=== PATIENT | female | born 1980 | race Caucasian/White ===

== ENCOUNTER 2016-08-06 10:27 | Emergency (ER) | payer OTHER ==
--- NOTE | 2016-08-06 10:43 | ER Document Report ---
ED Medical Screen (RME) - General Stated Complaint: ABDOMINAL PAIN Time seen by provider: 10:41 Mode of Arrival: Ambulatory Information source: Patient Notes: 36-year-old female presents to ED for abdominal pain back pain nausea and vomiting and diarrhea or and dizziness since Wednesday morning. Her son had it on Wednesday and the youngest had yesterday. No vomiting today. She states she's had 4 stools today already. Last menstrual period 07/24/2016. I have greeted and performed a rapid initial assessment of this patient. A comprehensive ED assessment and evaluation of the patient, analysis of test results and completion of medical decision making process will be conducted by an additional ED providers. TRAVEL OUTSIDE OF THE [place] IN LAST 30 DAYS: No Physical Exam - Vital signs Vitals: Temp Pulse Resp BP Pulse Ox 98.2 F 91 17 125/77 100 08/06/16 10:35 08/06/16 10:35 08/06/16 10:35 08/06/16 10:35 08/06/16 10:35 Course - Vital Signs Vital signs: Temp Pulse Resp BP Pulse Ox 98.2 F 91 17 125/77 100 08/06/16 10:35 08/06/16 10:35 08/06/16 10:35 08/06/16 10:35 08/06/16 10:35
[2016-08-06 11:41] LABS: ABSOLUTE MONOCYTES (AUTO) 0.3 10^3/uL (0.1-1.4); ABSOLUTE NEUT (AUTO) 4.3 10^3/uL (1.7-8.2); BASOPHILS % (AUTO) 0.4 % (0-2); EOSINOPHILS % (AUTO) 0.5 % (0-6); HEMATOCRIT 37.6 % (36.0-47.0); HEMOGLOBIN 12.4 g/dL (12.0-15.5); HGB HCT DIFFERENCE -0.4; MEAN CORPUSCULAR HGB CONC 33.1 g/dL (32.0-36.0); MEAN CORPUSCULAR VOLUME 79 fl (80-97); MONOCYTES % (AUTO) 5.4 % (3-13); RED BLOOD COUNT 4.77 10^6/uL (3.72-5.28); RED CELL DISTRIBUTION WIDTH 15.5 % (11.5-14.0); SEGMENTED NEUTROPHILS % (AUTO) 75.7 % (42-78); WHITE BLOOD COUNT 5.6 10^3/uL (4.0-10.5)
[2016-08-06 11:52] LABS: APPEARANCE,URINE SLIGHTLY-CLOUDY; BILIRUBIN,URINE NEGATIVE (NEGATIVE); GLUCOSE, URINE NEGATIVE (NEGATIVE); KETONES,URINE TRACE mg/dL (NEGATIVE); LEUKOCYTE ESTERASE,URINE SMALL (NEGATIVE); NITRITE,URINE NEGATIVE (NEGATIVE); PROTEIN,URINE NEGATIVE (NEGATIVE); URINE SPECIFIC GRAVITY 1.011; UROBILINOGEN,URINE NEGATIVE mg/dL (<2.0)
[2016-08-06 11:55] LABS: ALANINE AMINOTRANSFERASE 32 U/L (9-52); ALBUMIN 4.3 g/dL (3.5-5.0); ALKALINE PHOSPHATASE 115 U/L (38-126); ANION GAP 11 (5-19); ASPARTATE AMINO TRANSFERASE 23 U/L (14-36); BILIRUBIN,DIRECT 0.3 mg/dL (0.0-0.4); BILIRUBIN,TOTAL 0.5 mg/dL (0.2-1.3); BLOOD UREA NITROGEN 9 mg/dL (7-20); CALCIUM 9.4 mg/dL (8.4-10.2); CARBON DIOXIDE 24 mmol/L (22-30); CHLORIDE 105 mmol/L (98-107); CREATININE RESULT 0.63 mg/dL (0.52-1.25); GLUCOSE 95 mg/dL (75-110); POTASSIUM 4.4 mmol/L (3.6-5.0); SODIUM 140.1 mmol/L (137-145); TOTAL PROTEIN 7.3 g/dL (6.3-8.2)
[2016-08-06] MEDS ORDERED: ONDANSETRON HCL INJ/PF 4 MG/2 ML SDV IV ONE (12:51)
[2016-08-06] MEDS ORDERED: NORMAL SALINE 1000 ML 2,000 ML IV ONE (12:51)
--- NOTE | 2016-08-06 12:58 | ER Document Report ---
ED GI/ - General Chief Complaint: Abdominal Pain Stated Complaint: ABDOMINAL PAIN Time seen by provider: 12:47 Mode of Arrival: Ambulatory Information source: Patient Notes: 36-year-old female complaining of dizziness, vomiting and diarrhea since Wednesday. She has not bounced back like her child that had this illness. No fever. No dysuria. No vaginal discharge. No flank pain. Labs are normal and she is not . TRAVEL OUTSIDE OF THE [place] IN LAST 30 DAYS: No - Related Data Allergies/Adverse Reactions: Sulfa (Sulfonamide Antibiotics) Allergy (Verified 08/06/16 10:42) Past Medical History - General Information source: Patient - Social History Smoking Status: Never Smoker Chew tobacco use (# tins/day): No Frequency of alcohol use: None Drug Abuse: None Lives with: Family Family History: Reviewed & Not Pertinent Patient has suicidal ideation: No Patient has homicidal ideation: No - Medical History Medical History: Negative Renal/ Medical History: Denies: Hx Peritoneal Dialysis Surgical Hx: Negative Review of Systems - Review of Systems Constitutional: No symptoms reported EENT: No symptoms reported Cardiovascular: No symptoms reported Respiratory: No symptoms reported Gastrointestinal: See HPI Genitourinary: No symptoms reported Female Genitourinary: No symptoms reported Musculoskeletal: No symptoms reported Skin: No symptoms reported Hematologic/Lymphatic: No symptoms reported Neurological/Psychological: No symptoms reported Physical Exam - Vital signs Vitals: Temp Pulse Resp BP Pulse Ox 98.2 F 91 17 125/77 100 08/06/16 10:35 08/06/16 10:35 08/06/16 10:35 08/06/16 10:35 08/06/16 10:35 Interpretation: Normal - General General appearance: Alert Notes: Looks dry - HEENT Head: Normocephalic, Atraumatic Eyes: Normal Conjunctiva: Normal Pupils: PERRL Mucous membranes: Dry Pharynx: Normal Neck: Supple. No: Lymphadenopathy - Respiratory Respiratory status: No respiratory distress Chest status: Nontender Breath sounds: Normal Chest palpation: Normal - Cardiovascular Rhythm: Regular Heart sounds: Normal auscultation Murmur: No - Abdominal Inspection: Normal Distension: No distension Bowel sounds: Normal Tenderness: Nontender. No: Tender Organomegaly: No organomegaly - Back Back: Normal, Nontender. No: CVA tenderness - Extremities General upper extremity: Normal inspection, Nontender, Normal color, Normal ROM , Normal temperature General lower extremity: Normal inspection, Nontender, Normal color, Normal ROM , Normal temperature, Normal weight bearing. No: Nilay's sign - Neurological Neuro grossly intact: Yes Cognition: Normal Orientation: AAOx4 [place] Coma Scale Eye Opening: Spontaneous [place] Coma Scale Verbal: Oriented [place] Coma Scale Motor: Obeys Commands [place] Coma Scale Total: 15 Speech: Normal Motor strength normal: LUE, RUE, LLE, RLE Sensory: Normal - Psychological Associated symptoms: Normal affect, Normal mood - Skin Skin Temperature: Warm Skin Moisture: Dry Skin Color: Normal Skin irregularity: negative: Rash Course - Re-evaluation Re-evalutation: 08/06/16 15:23 Looks better after the IV fluid but she states she still has some upper abdominal pain ordered a GI cocktail and Prevacid 30 mg ODT. Eating crackers and drinking gingerale. Abdomen still non tender. Kept fluids down, she states it carrillo some going down. very minimal diarrhea in bathrrom 08/06/16 15:33 - Vital Signs Vital signs: Temp Pulse Resp BP Pulse Ox 98.2 F 91 17 125/77 100 08/06/16 10:35 08/06/16 10:35 08/06/16 10:35 08/06/16 10:35 08/06/16 10:35 - Laboratory Result Diagrams: 08/06/16 10:55 08/06/16 10:55 Laboratory results interpreted by me: 08/06/16 08/06/16 08/06/16 10:55 11:00 12:33 MCV 79 L MCH 26.0 L RDW 15.5 H POC Glucose 114 H Urine Ketones TRACE H Urine Blood MODERATE H Ur Leukocyte Esterase SMALL H Discharge - Discharge Clinical Impression: Vomiting Qualifiers: Vomiting type: unspecified Vomiting Intractability: non-intractable Nausea presence: with nausea Qualified Code(s): R11.2 - Nausea with vomiting, unspecified Diarrhea Qualifiers: Diarrhea type: unspecified type Qualified Code(s): R19.7 - Diarrhea, unspecified Abdominal pain Qualifiers: Abdominal location: generalized Qualified Code(s): R10.84 - Generalized abdominal pain Condition: Good Disposition: HOME, SELF-CARE Instructions: Abdominal Pain ([facility]), Intravenous (IV) Fluids ([facility]), Vomiting ( [facility]), Diarrhea, Nonspecific ([facility]) Additional Instructions: plenty of fluids advance diet as tolerated to er if worse Please complete the patient satisfaction survey if you get one, and return it.. If you do not receive a survey, then you can go to the [facility] website, [email or web address] and place your comments about your very good care. Thank you very much. It was a pleasure being your medical provider today. Forms: Return to Work Referrals: MYKE PRADHAN PA [Primary Care Provider] - Follow up as needed
[2016-08-06] MEDS ORDERED: MAG HYDROX/AL HYDROX/SIMETH SUSP 30 ML UDCUP PO ONE (14:58)
[2016-08-06] MEDS ORDERED: LIDOCAINE 2% VISCOUS SOLN 20 ML UDCUP PO ONE (14:58)
[2016-08-06] MEDS ORDERED: LANSOPRAZOLE 30 MG TAB.RAP.DR PO ONE (14:58)
[2016-08-06 16:11] VITALS: BP 125/83
== END 2016-08-06 16:15 | disposition home or self-care (01) ==
LOC: ER 10:27
DX: R10.84 Generalized abdominal pain (principal); R11.2 Nausea with vomiting, unspecified; R19.7 Diarrhea, unspecified; R10.9 Unspecified abdominal pain; R42 Dizziness and giddiness
CPT/HCPCS: 99284; 96361; 96374; 36415; 82962; 84703; 85025; 80053; 81001; J3490; J2405; J7030

== ENCOUNTER → 2017-01-22 | Outpatient (CLI) | payer OTHER ==
--- NOTE | 2017-01-22 11:48 | RADIOLOGY REPORT (SQ) ---
EXAM DESCRIPTION: CT BONE LENGTH COMPLETED DATE/TIME: 01/22/2017 10:46 am REASON FOR STUDY: LLD Q72.819 CONGENITAL SHORTENING OF UNSPECIFIED LOWER LIMB COMPARISON: None. TECHNIQUE: CT scanogram of the bilateral lower extremities is performed including pelvis to ankles. Measurements of femur, tibia, and entire lower extremities performed by the radiologist and saved to PACS. All CT scanners at this facility use dose modulation, iterative reconstruction, and/or weight based d osing when appropriate to reduce radiation dose to as low as reasonably achievable (ALARA). [facility]: Dose Right [facility]: CareDose [facility]: Dose Right [facility]: Teradose 4D [facility]: [employer] RADIATION DOSE: mGy. LIMITATIONS: None. FINDINGS: RIGHT: FEMUR: 46.9 cm. TIBIA: 36.9 cm. TOTAL RIGHT LOWER EXTREMITY LENGTH: 83.8 cm. LEFT: FEMUR: 47.1 cm. TIBIA: 36.9 cm. TOTAL LEFT LOWER EXTREMITY LENGTH: 84.0 Cm. IMPRESSION: LEG LENGTH MEASUREMENTS DETAILED ABOVE. TECHNICAL DOCUMENTATION: JOB ID: [id number] Quality ID # [id number]: Final reports with documentation of one or more dose reduction techniques (e.g., Au tomated exposure control, adjustment of the mA and/or kV according to patient size, use of iterative reconstruction technique) 2010 [employer]- All Rights Reserved
== END ==
LOC: RAD 10:33
PROVIDERS: ATTEND Podiatrist Foot & Ankle Surgery
DX: Q72.819 Congenital shortening of unspecified lower limb (principal)
CPT/HCPCS: 77073

== ENCOUNTER → 2017-07-01 | Outpatient (CLI) | payer OTHER ==
--- NOTE | 2017-07-01 13:22 | RADIOLOGY REPORT (SQ) ---
EXAM DESCRIPTION: FOOT LEFT COMPLETE COMPLETED DATE/TIME: 07/01/2017 9:17 am REASON FOR STUDY: CALCANEAL SPUR, LEFT FOOT M77.32 CALCANEAL SPUR, LEFT FOOT COMPARISON: None. NUMBER OF VIEWS: Three views. TECHNIQUE: AP, lateral and oblique radiographic images acquired of the left foot. LIMITATIONS: None. FINDINGS: MINERALIZATION: Normal. BONES: No acute fracture or dislocation. No worrisome bone lesions. Tiny left plantar calcaneal spu r without fracture JOINTS: No effusions. SOFT TISSUES: No soft tissue swelling. No foreign body. OTHER: No other significant finding. IMPRESSION: NEGATIVE STUDY OF THE LEFT FOOT. NO RADIOGRAPHIC EVIDENCE OF ACUTE INJURY. TECHNICAL DOCUMENTATION: JOB ID: [id number] [employer]- All Rights Reserved
== END ==
LOC: OD 09:03
PROVIDERS: ATTEND Podiatrist Foot & Ankle Surgery
DX: M77.32 Calcaneal spur, left foot (principal)

== ENCOUNTER 2017-07-30 07:18 | Day surgery (SDC) | payer OTHER ==
[2017-07-29 09:48] LABS: ABSOLUTE EOSINOPHILS # (AUTO) 0.1 10^3/uL (0.0-0.6); ABSOLUTE LYMPHOCYTES (AUTO) 2.1 10^3/uL (0.5-4.7); ABSOLUTE MONOCYTES (AUTO) 0.5 10^3/uL (0.1-1.4); ABSOLUTE NEUT (AUTO) 5.4 10^3/uL (1.7-8.2); BASOPHILS % (AUTO) 0.3 % (0-2); EOSINOPHILS % (AUTO) 1.4 % (0-6); HEMATOCRIT 32.1 % (36.0-47.0); HEMOGLOBIN 10.7 g/dL (12.0-15.5); LYMPHOCYTES % (AUTO) 25.4 % (13-45); MEAN CORPUSCULAR HEMOGLOBIN 25.4 pg (27.0-33.4); MEAN CORPUSCULAR HGB CONC 33.5 g/dL (32.0-36.0); MEAN CORPUSCULAR VOLUME 76 fl (80-97); MONOCYTES % (AUTO) 5.7 % (3-13); PLATELET COUNT 438 10^3/uL (150-450); RED BLOOD COUNT 4.23 10^6/uL (3.72-5.28); SEGMENTED NEUTROPHILS % (AUTO) 67.2 % (42-78); TOTAL CELLS COUNTED % (AUTO) 100 %; WHITE BLOOD COUNT 8.1 10^3/uL (4.0-10.5)
[2017-07-29 10:01] LABS: APPEARANCE,URINE CLEAR; BILIRUBIN,URINE NEGATIVE (NEGATIVE); COLOR,URINE COLORLESS; GLUCOSE, URINE NEGATIVE (NEGATIVE); KETONES,URINE NEGATIVE (NEGATIVE); LEUKOCYTE ESTERASE,URINE SMALL (NEGATIVE); NITRITE,URINE NEGATIVE (NEGATIVE); PROTEIN,URINE NEGATIVE (NEGATIVE); URINE SPECIFIC GRAVITY 1.002; UROBILINOGEN,URINE NEGATIVE mg/dL (<2.0)
[~2017-07-30 07:18] MED LIST: BUPIVACAINE HCL 0.5 % INJ/PF 30 ML SDV ONE; CEFAZOLIN 1 GM/D5W RTU 1 GM/50 ML RTUPB IV PRN; DIPHENHYDRAMINE HCL 50 MG/ML VIAL ONE; FENTANYL CITRATE INJ/PF 100 MCG/2 ML AMPUL ONE; KETOROLAC TROMETHAMINE 60 MG/2 ML SDV ONE; LIDOCAINE 2% INJ (20 MG/ML) 20 ML MDV ONE; MIDAZOLAM 2 MG/2 ML INJ ONE; PROPOFOL INJ 200 MG/20 ML VIAL IV ONE; RINGERS SOLUTION,LACTATED 1,000 ML IV PRN
[2017-07-30] MEDS ORDERED: LIDOCAINE 2% INJ (20 MG/ML) 20 ML MDV ONE (08:10)
[2017-07-30] MEDS ORDERED: DEXAMETHASONE SOD PHOSPHATE INJ 4 MG/1 ML VIAL ONE (08:11)
[2017-07-30] MEDS ORDERED: BUPIVACAINE HCL 0.5 % INJ/PF 30 ML SDV ONE (08:11)
[2017-07-30] MEDS ORDERED: MORPHINE SULFATE 10 MG/ML INJ ONE (09:57)
[2017-07-30] MEDS ORDERED: FENTANYL CITRATE INJ/PF 100 MCG/2 ML AMPUL ONE (10:18)
--- NOTE | 2017-07-30 13:24 | [facility] OPERATIVE REPORT E ---
[facility] Operative Report NAME: ADITYA LOZANO AGE: 37Y DATE OF SURGERY: 07/30/2017 ROOM: PREOPERATIVE DIAGNOSIS: Chronic heel spur syndrome, left foot. POSTOPERATIVE DIAGNOSIS: Chronic heel spur syndrome, left foot. PROCEDURES PERFORMED: Endoscopic plantar fasciotomy, left foot. SURGEON: JERRICA ALLISON D.P.M. INTRAOPERATIVE FINDINGS: Intraoperative findings were documented with intraoperative photography and the plantar fascia was very thick, very scarred from this chronic inflammatory condition of the attachment of the plantar fascia to the calcaneus. COMPLICATIONS: None. SPECIMEN: There was no specimen obtained either. DESCRIPTION OF PROCEDURE: With the patient lying in the dorsal recumbent position, the left foot and leg were prepped and draped in the usual standard sterile orthopedic manner. After the local anesthesia was administered, which was a left ankle block. After the anesthetic effect was accomplished, the left leg was elevated for approximately 2 minutes of time and the left ankle pneumatic tourniquet was inflated up to 250 mmHg after the blood was exsanguinated from the left foot. The left leg was brought to the level of the table and attention was directed to the medial aspect of the heel. Prior to inflating the tourniquet, the measurements from the x-rays were transferred to the medial aspect of the heel. Those measurements were needed for exact positioning of the small incision. The measurements were 4.5 cm from the posterior aspect of the heel and about 2 cm for the plantar aspect of the heel. The intersecting cam determined the placement of the incision. At this time, a 1 cm in length vertical incision was placed on the medial aspect of the heel, right at the level of the intersection of the 2 points obtained from the x-rays. The initial incision was deepened and the superficial and deep subcutaneous tissues were dissected via blunt and sharp dissection. This dissection was carried until the level of the placement of the instrumentation was established, which was between the plantar fascia superiorly and the heavy layer of adipose tissue inferiorly to the plantar fascia. Using an elevator, a pathway was created for the placement of the probe with the trocar sheath. The pathway was immediately inferior and adjacent to the plantar fascia and extended from medial to lateral direction across the length of the fascia. Next, the probe with the trocar sheath was introduced into the surgical area and a small stab incision was created through the lateral aspect of the heel in order to allow the cylinder to exit on the lateral aspect of the heel. At this point, the probe was removed and the cutting surface of the trocar sheath was adjusted in such a way that it was facing directly superiorly in relation to the plantar fascia. Next, the scope was introduced into the area and the point of orientation was established. At this point, the intraoperative pictures were obtained, which documented the thick glistening, white plantar fascia. Using a regular hockey-type blade, the plantar fascia was cut from medial to lateral direction. Several repetitions were performed with this blade due to the thickness of the plantar fascia. The second photograph was taken, at this point, to document the partially severed plantar fascia. Next, pressure was applied to the ball of the foot. The foot was dorsiflexed and the repetition of cutting from medial to lateral direction continued until the full-thickness of the plantar fascia was severed. Again, only the medial two thirds of the plantar fascia were completely cut from medial to lateral direction and the lateral one third of the plantar fascia was left uninterrupted. The septal muscle fibers were also cut. At this point, the final photography was taken, documenting the complete severing of the plantar fascia and again, only the medial two thirds of the plantar fascia were severed completely. The surgical area was irrigated with copious amounts of sterile saline solution. The trocar sheath was removed from the surgical area, and the ankle pneumatic tourniquet was deflated and circulation to the left foot returned to normal immediately as the normal digital color and temperature became apparent. Next, 1 mL of dexamethasone was injected into the surgical area to control postoperative inflammation. A Leigh was introduced from [id number] direction into the surgical wound in order to prevent hematoma formation. Next, with the utilization of 4-0 nylon, the small incisions on the medial and lateral aspect of the heel were closed. Betadine compression dressing was applied to the left foot followed with the Raoul bandage and a surgical shoe. This patient tolerated surgical procedures well, left the operating room with stable vital signs and in good condition. The patient was taken to the recovery room alert, conscious, and oriented. There were no permanent disabilities anticipated at this time. The immediate postoperative recovery was also very uneventful. The patient was sent home with instructions for postoperative care at home. Pain medication and antibiotics were prescribed for the patient and the patient was instructed how to take the medications. The patient was allowed to get back to a regular diet and all preoperative medications to be taken as prescribed by primary physician. Followup appointment was scheduled in my office in 72 hours. DICTATING PHYSICIAN: JERRICA ALLISON D.P.M. [id number] PHY#: [id number] ID: [id number] JOB#: [id number] ACCT: [id number] cc:JERRICA ALLISON D.P.M. >
== END 2017-07-30 11:15 | disposition home or self-care (01) ==
LOC: SC 07:18
PROVIDERS: ATTEND Podiatrist Foot & Ankle Surgery
DX: M77.32 Calcaneal spur, left foot (principal); M72.2 Plantar fascial fibromatosis; M06.9 Rheumatoid arthritis, unspecified; D64.9 Anemia, unspecified; I10 Essential (primary) hypertension; F17.210 Nicotine dependence, cigarettes, uncomplicated
CPT/HCPCS: 36415; 85025; 81001; 29893; J2250; J3490 ×2; J0690; J1100; J1200; J1885; J3010; J2270; J2704; 1470

== ENCOUNTER → 2017-08-24 | Day surgery (SDC) | payer OTHER ==
--- NOTE | 2017-08-24 15:14 | RADIOLOGY REPORT (SQ) ---
EXAM DESCRIPTION: ARTHRO HIP INJ W/ANESTHESIA; FLUORO/NEEDLE PLACEMENT COMPLETED DATE/TIME: 08/24/2017 2:38 pm REASON FOR STUDY: FEMORAL ACETABULAR IMPINGEMENT M25.852 OTHER SPECIFIED JOINT DISORDERS, LEFT HIP COMPARISON: None. FLUOROSCOPY TIME: 7 seconds 2 digital radiographic images saved to PACS. LIMITATIONS: None. PROCEDURE: Procedure, risks, benefits and alternatives explained to patient who then gave written c onsent. The left hip was marked and a time-out was called for correct marking verification. Entry s ite marked using fluoroscopic guidance. Hip prepped and draped using sterile technique. Local anes thesia achieved using 7 mL of 1% lidocaine injection. 22 gauge spinal needle introduced into the lisa nt space under direct fluoroscopic visualization. Non-ionic contrast instilled to confirm intra-terrance cular position. Dilute gadolinium solution then injected. Needle removed and entry site covered wi th sterile bandage. No immediate complications noted. TECHNIQUE: Digital images acquired during fluoroscopy and stored on PACS. Patient immediately take n to the MR suite for additional imaging. INJECTION LOCATION: Left hip joint CONTRAST TYPE AND AMOUNT: 1 mL of Isovue-300 was injected to confirm intra-articular needle placement followed by 8 mL of dilute Prohance/Saline mixture. IMPRESSION: SUCCESSFUL NEEDLE PLACEMENT AND INJECTION FOR LEFT HIP MR ARTHROGRAM. COMMENT: Quality ID 145: Final reports for procedures using fluoroscopy that document radiation exp osure indices, or exposure time and number of fluorographic images (if radiation exposure indices are not available) TECHNICAL DOCUMENTATION: JOB ID: [id number] [employer]- All Rights Reserved Reading location - IP/workstation name: [facility]
--- NOTE | 2017-08-24 15:14 | RADIOLOGY REPORT (SQ) ---
EXAM DESCRIPTION: ARTHRO HIP INJ W/ANESTHESIA; FLUORO/NEEDLE PLACEMENT COMPLETED DATE/TIME: 08/24/2017 2:38 pm REASON FOR STUDY: FEMORAL ACETABULAR IMPINGEMENT M25.852 OTHER SPECIFIED JOINT DISORDERS, LEFT HIP COMPARISON: None. FLUOROSCOPY TIME: 7 seconds 2 digital radiographic images saved to PACS. LIMITATIONS: None. PROCEDURE: Procedure, risks, benefits and alternatives explained to patient who then gave written c onsent. The left hip was marked and a time-out was called for correct marking verification. Entry s ite marked using fluoroscopic guidance. Hip prepped and draped using sterile technique. Local anes thesia achieved using 7 mL of 1% lidocaine injection. 22 gauge spinal needle introduced into the lisa nt space under direct fluoroscopic visualization. Non-ionic contrast instilled to confirm intra-terrance cular position. Dilute gadolinium solution then injected. Needle removed and entry site covered wi th sterile bandage. No immediate complications noted. TECHNIQUE: Digital images acquired during fluoroscopy and stored on PACS. Patient immediately take n to the MR suite for additional imaging. INJECTION LOCATION: Left hip joint CONTRAST TYPE AND AMOUNT: 1 mL of Isovue-300 was injected to confirm intra-articular needle placement followed by 8 mL of dilute Prohance/Saline mixture. IMPRESSION: SUCCESSFUL NEEDLE PLACEMENT AND INJECTION FOR LEFT HIP MR ARTHROGRAM. COMMENT: Quality ID 145: Final reports for procedures using fluoroscopy that document radiation exp osure indices, or exposure time and number of fluorographic images (if radiation exposure indices are not available) TECHNICAL DOCUMENTATION: JOB ID: [id number] [employer]- All Rights Reserved Reading location - IP/workstation name: [facility]
--- NOTE | 2017-08-24 16:21 | RADIOLOGY REPORT (SQ) ---
EXAM DESCRIPTION: MRI LT LOWER JOINT WITH COMPLETED DATE/TIME: 08/24/2017 3:22 pm REASON FOR STUDY: FEMORAL ACETABULAR IMPINGEMENT M25.852 OTHER SPECIFIED JOINT DISORDERS, LEFT HIP COMPARISON: None. Plain radiograph TECHNIQUE: Post arthrogram imaging is performed using T1 and T1 and T2 fat saturated sequences of th e pelvis and specific hip of interest. LIMITATIONS: None. FINDINGS: JOINT DISTENSION: Adequate. No loose body. BONE MARROW: No edema. No marrow replacement. FEMORAL HEAD, NECK, AND ACETABULUM: No occult fracture. Normal sphericity. Cartilage is maintained. There is a very tiny likely insignificant tear of the superolateral labrum. PUBIC RAMI AND ISCHIUM: No occult fracture. SACRUM AND HAL: SI joints normal in signal. No occult fracture. EFFUSIONS: None. LABRUM AND CARTILAGE: Very tiny labral tear. No cartilaginous abnormality.) Posttreatment go go MUSCLES AND SOFT TISSUES: Adductors and piriformis normal. Abductors and greater trochanteric bursa n ormal without edema or fluid. Iliopsoas bursa without fluid. Hamstring attachments without edema or t ear. PELVIC SOFT TISSUES: No masses or adenopathy. SCIATIC NERVE: Identified without masses. OTHER: No other significant finding. IMPRESSION: Very tiny left superolateral labral tear of doubtful clinical significance. No evidence for femoroacetabular impingement. TECHNICAL DOCUMENTATION: JOB ID: [id number] [employer]- All Rights Reserved Reading location - IP/workstation name: [email or web address]
== END ==
LOC: RAD 13:46
PROVIDERS: ATTEND Orthopaedic Surgery
PROC: BQ01ZZZ Plain Radiography of Left Hip (ICD-10-PCS; principal; 2017-08-24)
DX: M25.852 Other specified joint disorders, left hip (principal); S73.192A Other sprain of left hip, initial encounter; X58.XXXA Exposure to other specified factors, initial encounter
CPT/HCPCS: 73722; 77002; 27095; A9576

== ENCOUNTER 2018-09-22 11:43 | Emergency (ER) | payer OTHER ==
--- NOTE | 2018-09-22 12:03 | ER Document Report ---
ED Medical Screen (RME) - General Chief Complaint: Chest Pain Stated Complaint: CHEST PAIN Time Seen by Provider: 09/22/18 11:57 Primary Care Provider: MYKE SALDANA PA-C [Primary Care Provider] - Follow up as needed Mode of Arrival: Ambulatory Information source: Patient Notes: Patient is an otherwise healthy 38-year-old female presented to the emergency department with right-sided chest pain that radiates into her right arm. Patient reports pain started yesterday. She denies any nausea or vomiting. She does report some mild shortness of breath. The pain is reproducible to palpation. She was seen at the urgent care this morning who did an EKG and states that she had EKG changes so they recommended she come to the emergency department. Patient has not taken any medications for this today. Denies any cardiac history. Exam: Heart sounds S1-S2 present with no ectopy noted. Lung sounds clear and equal bilaterally. Reproducible pain with palpation to the right chest wall. I have greeted and performed a rapid initial assessment of this patient. A comprehensive ED assessment and evaluation of the patient, analysis of test results and completion of the medical decision making process will be conducted by additional ED providers. Dictation of this chart was performed using voice recognition software; therefore, there may be some unintended grammatical errors. TRAVEL OUTSIDE OF THE [place] IN LAST 30 DAYS: No - Related Data Allergies/Adverse Reactions: Sulfa (Sulfonamide Antibiotics) Allergy (Verified 09/22/18 11:43) Past Medical History - Past Medical History Cardiac Medical History: Denies: Hx Heart Attack, Hx Hypertension Pulmonary Medical History: Denies: Hx Asthma Neurological Medical History: Denies: Hx Cerebrovascular Accident, Hx Seizures Renal/ Medical History: Denies: Hx Peritoneal Dialysis GI Medical History: Denies: Hx Hepatitis, Hx Hiatal Hernia, Hx Ulcer Musculoskeltal Medical History: Reports Hx Arthritis Infectious Medical History: Denies: Hx Hepatitis Past Surgical History: Reports: Hx Cholecystectomy. Denies: Hx Mastectomy, Hx Open Heart Surgery, Hx Pacemaker Physical Exam - Vital signs Vitals: Temp Pulse Resp BP Pulse Ox 98.4 F 70 20 143/93 H 100 09/22/18 11:51 09/22/18 11:51 09/22/18 11:51 09/22/18 11:51 09/22/18 11:51 Course - Vital Signs Vital signs: Temp Pulse Resp BP Pulse Ox 98.4 F 70 20 143/93 H 100 09/22/18 11:51 09/22/18 11:51 09/22/18 11:51 09/22/18 11:51 09/22/18 11:51 Doctor's Discharge - Discharge Referrals: MYKE SALDANA PA-C [Primary Care Provider] - Follow up as needed
[2018-09-22 12:22] LABS: ABSOLUTE BASOPHILS # (AUTO) 0.1 10^3/uL (0.0-0.2); ABSOLUTE EOSINOPHILS # (AUTO) 0.1 10^3/uL (0.0-0.6); ABSOLUTE LYMPHOCYTES (AUTO) 1.6 10^3/uL (0.5-4.7); ABSOLUTE MONOCYTES (AUTO) 0.6 10^3/uL (0.1-1.4); ABSOLUTE NEUT (AUTO) 6.2 10^3/uL (1.7-8.2); BASOPHILS % (AUTO) 0.8 % (0-2); EOSINOPHILS % (AUTO) 1.2 % (0-6); HEMATOCRIT 41.1 % (36.0-47.0); LYMPHOCYTES % (AUTO) 18.9 % (13-45); MEAN CORPUSCULAR HEMOGLOBIN 30.1 pg (27.0-33.4); MEAN CORPUSCULAR VOLUME 89 fl (80-97); MONOCYTES % (AUTO) 7.2 % (3-13); PLATELET COUNT 296 10^3/uL (150-450); RED BLOOD COUNT 4.64 10^6/uL (3.72-5.28); RED CELL DISTRIBUTION WIDTH 15.1 % (11.5-14.0); SEGMENTED NEUTROPHILS % (AUTO) 71.9 % (42-78); TOTAL CELLS COUNTED % (AUTO) 100 %; WHITE BLOOD COUNT 8.6 10^3/uL (4.0-10.5)
--- NOTE | 2018-09-22 12:38 | RADIOLOGY REPORT (SQ) ---
EXAM DESCRIPTION: CHEST SINGLE VIEW COMPLETED DATE/TIME: 09/22/2018 12:21 pm REASON FOR STUDY: chest pain COMPARISON: None. NUMBER OF VIEWS: One view. TECHNIQUE: Single frontal radiographic view of the chest acquired. LIMITATIONS: None. FINDINGS: LUNGS AND PLEURA: No opacities, masses or pneumothorax. No pleural effusion. MEDIASTINUM AND HILAR STRUCTURES: No masses. Contour normal. HEART AND VASCULAR STRUCTURES: Heart normal in size. Normal vasculature. BONES: No acute findings. HARDWARE: None in the chest. OTHER: No other significant finding. IMPRESSION: NO SIGNIFICANT RADIOGRAPHIC FINDING IN THE CHEST. TECHNICAL DOCUMENTATION: JOB ID: [id number] [employer]- All Rights Reserved Reading location - IP/workstation name: [email or web address]
[2018-09-22 12:40] LABS: ALANINE AMINOTRANSFERASE 22 U/L (9-52); ALBUMIN 4.4 g/dL (3.5-5.0); ALKALINE PHOSPHATASE 91 U/L (38-126); ANION GAP 7 (5-19); ASPARTATE AMINO TRANSFERASE 21 U/L (14-36); BILIRUBIN,DIRECT 0.4 mg/dL (0.0-0.4); BILIRUBIN,TOTAL 0.5 mg/dL (0.2-1.3); BLOOD UREA NITROGEN 9 mg/dL (7-20); CARBON DIOXIDE 28 mmol/L (22-30); CHLORIDE 102 mmol/L (98-107); GLUCOSE 91 mg/dL (75-110); POTASSIUM 5.6 mmol/L (3.6-5.0); SODIUM 136.7 mmol/L (137-145); TOTAL PROTEIN 7.5 g/dL (6.3-8.2)
--- NOTE | 2018-09-22 13:50 | RADIOLOGY REPORT (SQ) ---
EXAM DESCRIPTION: CTA CHEST COMPLETED DATE/TIME: 09/22/2018 1:39 pm REASON FOR STUDY: chest pain COMPARISON: Same day chest radiograph TECHNIQUE: CT scan of the chest performed using helical scanning technique with dynamic intravenous contrast injection. Images reviewed with lung, soft tissue and bone windows. Reconstructed coronal and sagittal MPR images reviewed. Additional 3 dimensional post-processing performed to develop Maximal Intensity Projection images (WI P). All images stored on PACS. All CT scanners at this facility use dose modulation, iterative reconstruction, and/or weight based d osing when appropriate to reduce radiation dose to as low as reasonably achievable (ALARA). [facility]: Dose Right [facility]: CareDose [facility]: Dose Right [facility]: Teradose 4D [facility]: boarding pass CONTRAST TYPE AND DOSE: contrast/concentration: Isovue 350.00 mg/ml; Total Contrast Delivered: 89.4 ml; Total Saline Delivered: 82.3 ml Contrast bolus optimized for the pulmonary arteries. Not diagnostic for the aorta. RENAL FUNCTION: None required. The patient is less than 50 years old. RADIATION DOSE: CT Rad equipment meets quality standard of care and radiation dose reduction techniq ues were employed. CTDIvol: 16.5 - 20.4 mGy. DLP: 746 mGy-cm. . LIMITATIONS: None. FINDINGS: LUNGS AND PLEURA: No masses, infiltrates, or pneumothorax. There are multiple calcified s mall benign bilateral pulmonary nodules. No pleural effusions or pleural calcifications. AORTA AND GREAT VESSELS: No aneurysm. Contrast bolus not optimized for the aorta. HEART: No pericardial effusion. No significant coronary artery calcifications. PULMONARY ARTERIES: No emboli visualized in the main pulmonary arteries or the segmental branches. HILAR AND MEDIASTINAL STRUCTURES: Calcified bilateral hilar and mediastinal lymph nodes in keeping wi th prior granulomatous infection. HARDWARE: None in the chest. UPPER ABDOMEN: Postoperative findings of gastric bypass. THYROID AND OTHER SOFT TISSUES: No masses. No adenopathy. BONES: No acute or significant finding. 3D MIPS: Confirm above findings. OTHER: No other significant finding. IMPRESSION: Negative examination for pulmonary embolism. COMMENT: Quality ID # [id number]: Final reports with documentation of one or more dose reduction techniques (e.g., Automated exposure control, adjustment of the mA and/or kV according to patient size, use of iterative reconstruction technique) TECHNICAL DOCUMENTATION: JOB ID: [id number]- All Rights Reserved Reading location - IP/workstation name: [email or web address]
--- NOTE | 2018-09-22 14:09 | EKG REPORT ---
SEVERITY:- ABNORMAL ECG - SINUS RHYTHM VENTRICULAR PREMATURE COMPLEX NONSPECIFIC T ABNORMALITIES, INFERIOR LEADS : Confirmed by: Orlando Benites MD 22-Sep-2018 14:08:20
--- NOTE | 2018-09-22 14:52 | ER Document Report ---
ED General - General Chief Complaint: Chest Pain Stated Complaint: CHEST PAIN Time Seen by Provider: 09/22/18 11:57 Primary Care Provider: MYKE SALDANA PA-C [Primary Care Provider] - Follow up as needed Mode of Arrival: Ambulatory Notes: 38 old female presents to the ER complaining of sharp chest pain in the center of her chest rating to the right side starting this morning. States is worse with movement and taking a deep breath. She denies fever chills cough or sore throat denies calf pain or leg swelling. Denies any abdominal pain. Denies any hemoptysis gland swelling night sweats. Denies any trauma. TRAVEL OUTSIDE OF THE [place] IN LAST 30 DAYS: No - Related Data Allergies/Adverse Reactions: Sulfa (Sulfonamide Antibiotics) Allergy (Verified 09/22/18 11:43) Past Medical History - General Information source: Patient - Social History Smoking Status: Current Every Day Smoker Frequency of alcohol use: 1-2glass wine daily Drug Abuse: None Family History: Reviewed & Not Pertinent Patient has suicidal ideation: No Patient has homicidal ideation: No - Past Medical History Cardiac Medical History: Denies: Hx Heart Attack, Hx Hypertension Pulmonary Medical History: Denies: Hx Asthma Neurological Medical History: Denies: Hx Cerebrovascular Accident, Hx Seizures Renal/ Medical History: Denies: Hx Peritoneal Dialysis GI Medical History: Denies: Hx Hepatitis, Hx Hiatal Hernia, Hx Ulcer Musculoskeletal Medical History: Reports Hx Arthritis Psychiatric Medical History: Reports: Hx Depression Infectious Medical History: Denies: Hx Hepatitis Past Surgical History: Reports: Hx Abdominal Surgery - gastric bypass, Hx Cholecystectomy, Hx Orthopedic Surgery - L knee, C5-7 fusion. Denies: Hx Mastectomy, Hx Open Heart Surgery, Hx Pacemaker Review of Systems - Review of Systems Constitutional: denies: Chills, Fever Cardiovascular: Chest pain. denies: Palpitations, Dyspnea Respiratory: denies: Cough, Short of breath -: Yes All other systems reviewed and negative Physical Exam - Vital signs Vitals: Temp Pulse Resp BP Pulse Ox 98.4 F 70 20 143/93 H 100 09/22/18 11:51 09/22/18 11:51 09/22/18 11:51 09/22/18 11:51 09/22/18 11:51 - Notes Notes: GENERAL_APPEARANCE: well_nourished, alert, cooperative, is uncomfortable VITALS: reviewed, see vital signs table. HEAD: no_swelling\tenderness on the head. EYES: PERRL, EOMI, conjunctiva_clear. NOSE: no_nasal_discharge. MOUTH: (-)decreased moisture. THROAT: no_tonsilar_inflammation, no_airway_obstruction. no_lymphadenopathy NECK: supple, no_neck_tenderness, (-)thyromegaly. BACK: no_back_tenderness. CHEST_WALL: Right parasternal_chest_tenderness. LUNGS: no_wheezing, no_rales, no_rhonchi, (-)accessory muscle use, good air exchange bilateral. HEART: normal_rate, normal_rhythm, normal_S1, normal_S2, (-)S3, (-)S4, no_murmur, no_rub. ABDOMEN: normal_BS, soft, no_abd_tenderness, (-)guarding, (-)rebound, no_organomegaly, no_abd_masses. EXTREMITIES: good pulses in all_extremities, no_swelling\tenderness in the extremities, no_edema. SKIN: warm, dry, good_color, no_rash. MENTAL_STATUS: speech_clear, oriented_X_3, normal_affect, responds_appropriately to questions. Course - Re-evaluation Re-evalutation: 09/22/18 14:50 38-year-old female presents to the ER planing of sharp chest discomfort. Pain is more pleuritic in history in nature. Heart score is low. Less than 3. The patient's leg could have an adverse cardiac event is low clinical history does not suggest ACS. Patient had a CT of the chest which ruled out PE. There is no aortic dissection or pneumothorax also. We will have the patient go on NSAIDs. Patient follow-up with family doctor. - Vital Signs Vital signs: Temp Pulse Resp BP Pulse Ox 98.4 F 70 23 H 156/100 H 100 09/22/18 11:51 09/22/18 11:51 09/22/18 14:01 09/22/18 14:01 09/22/18 14:01 - Laboratory Result Diagrams: 09/22/18 12:09 09/22/18 12:09 Laboratory results interpreted by me: 09/22/18 09/22/18 12:09 12:09 RDW 15.1 H Sodium 136.7 L Potassium 5.6 H - Diagnostic Test Radiology reviewed: Reports reviewed Radiology results interpreted by me: 09/22/18 14:48 Chest X-Ray 09/22/18 12:01 IMPRESSION: NO SIGNIFICANT RADIOGRAPHIC FINDING IN THE CHEST. Chest/Abdomen CTA 09/22/18 12:57 IMPRESSION: Negative examination for pulmonary embolism. - EKG Interpretation by Me EKG shows normal: Sinus rhythm Rhythm: NSR Additional EKG results interpreted by me: 09/22/18 14:48 Occasional PVCs noted Discharge - Discharge Clinical Impression: Costochondritis, acute Condition: Good Disposition: HOME, SELF-CARE Instructions: Chest Wall Pain ([facility]) Prescriptions: Diclofenac Sodium [Voltaren] 75 mg PO BID PRN #20 tablet.dr CHANEY Reason: Pain Scale Of 5 Referrals: MYKE SALDANA PA-C [Primary Care Provider] - Follow up as needed
[2018-09-22 16:13] VITALS: BP 161/100
== END 2018-09-22 16:10 | disposition home or self-care (01) ==
LOC: ER 11:43
DX: M94.0 Chondrocostal junction syndrome [Tietze] (principal); I49.3 Ventricular premature depolarization; F17.200 Nicotine dependence, unspecified, uncomplicated; Z98.84 Bariatric surgery status; Z88.2 Allergy status to sulfonamides
CPT/HCPCS: 36415; 71045; 71275; 80053; 84484; 85025; 93005; 93010; 99284